=== PATIENT | female | born 1995 | race American Indian/Alaskan Native ===

== ENCOUNTER 2018-09-28 12:30 | Emergency (ER) | payer OTHER ==
[2018-09-28 13:11] VITALS: BP 120/74
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
--- NOTE | 2018-09-28 15:32 | Emergency Department Report ---
ED Dysuria HPI - HPI Chief Complaint: Medical Clearance Stated Complaint: CHECK ON BABY Time Seen by Provider: 09/28/18 13:09 Severity: None Symptoms: Dysuria: No, Frequency: No, Suprapubic Pain: No, Flank Pain: No, Fever : No, Hematuria: No, Abdominal Pain: No, Previous UTI's: No Other History: Patient is a 22-year-old female that comes to the ER today to confirm that she is . She is new to the area and needs confirmation of for her Medicaid. Patient denies any complaints on provider exam. This is her second . She lost her first baby 4 months to rule out inco mpetent cervix. She is having no vaginal bleeding no discharge. No abdominal pain. No dysuria. Her last menstrual cycle started on July 152018. She is ambulatory, taking by mouth and nontoxic in appearance. ED Review of Systems ROS: Stated complaint: CHECK ON BABY Other details as noted in HPI Comment: All other systems reviewed and negative ED Past Medical Hx - Past Medical History Previous Medical History?: Yes Additional medical history: INCOMP CERVIX - Surgical History Past Surgical History?: No - Social History Smoking Status: Never Smoker Substance Use Type: None Dysuria Exam - Exam General: Vital signs noted. No distress. Alert and acting appropriately. Exam: Yes Moist Mucous Membranes, No CVA Tenderness, No Abdominal Tenderness, No Rigidity or Guarding ED Course Vital Signs 09/28/18 13:09 Temperature 98.2 F Pulse Rate 92 H Respiratory 16 Rate Blood Pressure 120/74 O2 Sat by Pulse 99 Oximetry ED Medical Decision Making - Medical Decision Making lmp 4-10 10w5d preg no vag bleed, no dc, no pain needs proof of preg for medicaid Vital Signs 09/28/18 13:09 Temperature 98.2 F Pulse Rate 92 H Respiratory 16 Rate Blood Pressure 120/74 O2 Sat by Pulse 99 Oximetry Labs 09/28/18 15:30 Urine Color Yellow Urine Turbidity Slightly-cloudy Urine pH 6.0 Ur Specific [place] 1.026 Urine Protein <15 mg/dl Urine Glucose (UA) Neg Urine Ketones Neg Urine Blood Neg Urine Nitrite Neg Urine Bilirubin Neg Urine Urobilinogen 2.0 Ur Leukocyte Esterase Sm Urine WBC (Auto) 3.0 Urine RBC (Auto) 1.0 U Epithel Cells (Auto) 8.0 Urine Mucus Few Urine HCG, Qual Positive A Critical care attestation.: If time is entered above; I have spent that time in minutes in the direct care of this critically ill patient, excluding procedure time. ED Disposition Clinical Impression: Disposition: DC-01 TO HOME OR SELFCARE Is pt being admited?: No Does the pt Need Aspirin: No Condition: Stable Instructions: (ED) Additional Instructions: HYDRATE WELL WITH WATER OVER THE COUNTER VITAMIN SEE [facility] REFERRAL BELOW Referrals: LUIS MIGUEL DELEON MD [Staff Physician] - 3-5 Days Time of Disposition: 15:31
[2018-09-28 15:54] LABS: Bilirubin,Urine NEG (Negative); Blood,Urine NEG (Negative); Color,Urine Yellow (Yellow); Mucus,Urine FEW /HPF; Protein,Urine <15 mg/dL mg/dL (Negative)
[2018-09-28 15:55] LABS: HCG Qualitative,Urine Positive (Negative)
== END 2018-09-28 16:18 | disposition home or self-care (01) ==
LOC: ED 12:30
DX: O26.891 Other specified pregnancy related conditions, first trimester (principal); M25.511 Pain in right shoulder; Z3A.01 Less than 8 weeks gestation of pregnancy
CPT/HCPCS: 81001; 81025

== ENCOUNTER 2020-09-25 16:42 | Emergency (ER) | payer MEDICAID, OTHER ==
[2020-09-25 17:55] VITALS: BP 111/59
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
--- NOTE | 2020-09-25 19:32 | XRay Report ---
Left wrist 4 views INDICATION: Left wrist pain following injury IMPRESSION: No fracture or subluxation of the left wrist is identified. Signer Name: Adilson Connell MD Signed: 09/25/2020 7:28 PM Workstation Name: [id number]
--- NOTE | 2020-09-25 19:35 | XRay Report ---
Right ankle 3 views INDICATION: Right ankle pain IMPRESSION: No fracture or subluxation is identified. Right knee 3 views INDICATION: Right knee pain following injury IMPRESSION: No fracture or subluxation is identified. Signer Name: Adilson Connell MD Signed: 09/25/2020 7:30 PM Workstation Name: [id number]
== END 2020-09-25 20:15 | disposition home or self-care (01) ==
LOC: ED 16:42
DX: M25.532 Pain in left wrist (principal); M25.561 Pain in right knee; M25.571 Pain in right ankle and joints of right foot; Z98.890 Other specified postprocedural states; W01.0XXA Fall on same level from slipping, tripping and stumbling without subsequent striking against object, initial encounter; Y93.89 Activity, other specified; Y92.89 Other specified places as the place of occurrence of the external cause; Y99.8 Other external cause status
CPT/HCPCS: 99283